=== PATIENT | female | born 1960 | race American Indian/Alaskan Native ===

== ENCOUNTER 2020-05-23 15:30 | Outpatient (CLI) | payer OTHER ==
--- NOTE | 2020-05-24 09:12 | Mammography Report ---
DIGITAL SCREENING MAMMOGRAM WITH CAD, 05/23/2020 INDICATION: Routine screening mammography. SCREENING TECHNIQUE: Digital bilateral 2D mammography was obtained in the craniocaudal and mediolateral obliq ue projections. This examination was interpreted with the benefit of Computer-Aided Detection analysi s. COMPARISON: None. The patient reportedly had previous imaging at [facility] were years ago but I d o not have these images. FINDINGS: Breast Density: There are scattered areas of fibroglandular density. There is no evidence of dominant mass, suspicious calcifications or architectural distortion in eithe r breast. There is a rounded density measuring 8 mm in the mid right breast which is best seen on the MLO view approximately 7 cm from the nipple, mid depth. This finding is less well correlated on the cc view but appears to be along the inner aspect. IMPRESSION: Follow up recommendation: Obtain prior study for comparison. If prior images are not available, recom mend follow-up Spot compression imaging. Category 0: Incomplete. Needs additional imaging evaluation and/or prior mammograms for comparison. A "normal" or negative report should not discourage follow up or biopsy of a clinically significant f inding. A written summary of these findings will be mailed to the patient. The patient will be entered into a mammography reporting system which will generate a reminder letter for the patient's next appointmen t at the appropriate interval. The [employer] recommends yearly mammograms starting at age 40 and continuing as l ga as a woman is in good health. Breast MRI is recommended for women with an approximate 20-25% or greater lifetime risk of breast cancer, including women with a strong family history of breast or ova riccardo cancer or who have been treated for Hodgkin's disease. Signer Name: Goyo Warren MD Signed: 05/24/2020 9:07 AM Workstation Name: [id number]
== END 2020-05-23 15:31 | disposition home or self-care (01) ==
LOC: SPVWC 15:30
PROVIDERS: ATTEND Internal Medicine
DX: Z12.31 Encounter for screening mammogram for malignant neoplasm of breast (principal)
CPT/HCPCS: 77067